=== PATIENT | female | born 1990 | race Caucasian/White ===

== ENCOUNTER → 2018-08-10 17:07 | Outpatient (CLI) | payer OTHER, BC, SELFPAY ==
[2018-08-10 17:33] LABS: Add Manual Diff / Slide Review NO; Appearance Urine UA CLEAR; Basophils Percent Auto 0.8 % (0-2); Bilirubin Urine UA NEGATIVE (NEGATIVE); Color Urine UA YELLOW; Eosinophils Percent Auto 1.1 % (2-4); Glucose Urine UA NEGATIVE (Negative); Hematocrit 35.2 % (36-46); Ketones Urine UA NEGATIVE (NEGATIVE); Leukocyte Esterase Urine UA 2+ (NEGATIVE); Lymphocytes Percent Auto 34.2 % (25-40); Mean Corpuscular HGB Conc 34.2 % (30-36); Mean Corpuscular Hemoglobin 30.7 PG (26-34); Mean Corpuscular Volume 89.7 fL (80-100); Monocytes Percent Auto 5.8 % (3-14); Neutrophils Absolute Auto 6000 /uL (1500-7000); Neutrophils Percent Auto 58.1 % (50-75); Nitrite Urine UA NEGATIVE (Negative); Occult Blood Urine UA NEGATIVE (Negative); Platelet Count 305 X10^3/uL (150-400); Protein Urine UA NEGATIVE (Negative); Red Blood Cell Count 3.92 X10^6/uL (4.0-5.2); Red Cell Distribution Width 12.9 % (11.6-14.8); Urobilinogen Urine UA 0.2 E.U./dL (0.2); White Blood Cell Count 10.4 X10^3/uL (4.5-11.0); pH Urine UA 5.5 (4.5-8.0)
[2018-08-10 17:36] LABS: Bacteria Urine None Seen; RBC Urine None Seen (0-5/HPF)
[2018-08-10 17:38] LABS: WBC Urine 1-5/HPF (0-5/HPF)
[2018-08-11 16:25] LABS: Hepatitis B Surface Antigen NEGATIVE s/c (NEGATIVE)
[2018-08-11 16:46] LABS: HIV 1 and 2 Antibody NEGATIVE (NEGATIVE); Hep C Virus Ab w/Reflex Quant NEGATIVE s/c (NEGATIVE)
[2018-08-12 14:06] LABS: Varicella IgG Antibody < 135.00 Index (< 135.00)
[2018-08-12 16:44] LABS: RPR Screen Nonreactive (Nonreactive)
== END ==
PROVIDERS: Visit Provider Specialist
DX: Z34.91 Encounter for supervision of normal pregnancy, unspecified, first trimester (principal)
CPT/HCPCS: 36415; 80055; 81003; 81015; 86703; 86787; 86803; 86850; 86900; 86901; 87086

== ENCOUNTER → 2018-10-12 16:06 | Outpatient (CLI) | payer OTHER, BC, SELFPAY ==
[2018-10-20 13:53] LABS: AFP, Serum 66.3 ng/mL; Cigarette Smoker N; Donated Egg N; Donor Egg Age NOT GIVEN; Estriol, Free 1.51 ng/mL; Inhibin A, Dimeric 237 pg/mL; Maternal Weight 145 lbs; Number of Fetuses NOT GIVEN; Previous Pregnancy Down Syndro N; hCG, MoM 2.03; hCG, Serum 58.7 IU/mL
== END ==
PROVIDERS: Visit Provider Specialist
DX: Z34.02 Encounter for supervision of normal first pregnancy, second trimester (principal); Z3A.17 17 weeks gestation of pregnancy
CPT/HCPCS: 36415; 82105; 82677; 84702; 86336

== ENCOUNTER → 2018-11-08 15:05 | Outpatient (CLI) | payer OTHER, BC, SELFPAY ==
--- NOTE | 2018-11-08 15:06 | DI.US.S_ITS ---
PROCEDURE: US OB >= 14 WEEKS FETUS INDICATIONS: 20 wk anatomy scan OUTSIDE/PRIOR DATING DATA: Last menstrual period (LMP): Not available. LMP-based estimated date of delivery (MICHELLE): Not available. First dating scan (date and location): No image data available.. Estimated date of delivery (MICHELLE) from first dating scan: No image data available.. TECHNIQUE: Real-time scanning was performed of the fetus, with image documentation and biometric measurements. Endovaginal scanning: Not necessary for this study. COMPARISON: None available. FINDINGS: General: A single living intrauterine gestation is present. Presentation: Breech Placenta: Placental position is anterior, without previa. Amniotic fluid index: 8.3 cm, normal range is 5-24 cm. heart rate: 152 beats per minute. Maternal cervical canal: 3.8 cm long. Normal lower limit is 2.5 cm. biometrics: Biparietal diameter: 4.5 cm, 19 weeks 5 days Head circumference: 17.5 cm, 20 weeks 0 days Abdominal circumference: 16.7 cm, 21 weeks 5 days Femur length: 3.3 cm, 20 weeks 3 days Estimated gestational age from initial scan: not applicable. Composite gestational age from present scan: 20 weeks 3 days Estimated weight and percentile: 389 g, 35th percentile Measurement variability for biometric dating: +/- 7 days from 14 weeks to 15 weeks 6 days gestation, +/- 10 days from 16 weeks to 21 weeks 6 days gestation, +/- 2 weeks from 22 weeks to 27 weeks 6 days gestation, +/- 3 weeks for 28 weeks gestation or later. weight reference: 4500 g or EFW >90/95% is considered macrosomia or large for gestational age. EFW <10% is small for gestational age. EFW 5% or less is considered intra-uterine growth restriction. Anatomic survey: Neuro: Ventricles are non-dilated at less than 10 mm. Cisterna magna is normal at 3-11 mm. Cerebellum is normal in size and morphology. Nuchal skin fold: Normal at less than 6 mm between 14-21 weeks gestational age. Face: Nose and lips, facial profile are normal. Spine: Poorly seen due to positioning. Heart: Poorly seen due to positioning. Diaphragm: Diaphragm is intact. Stomach: Left-sided stomach is present. Kidneys: No hydronephrosis. Normal is less than 5 mm in 2nd trimester, less than 7 mm in 3rd trimester. Cord: 3-vessel cord has insertion 1.7 cm from the placental margin. Bladder: Normal in size. Extremities: The lower extremities were poorly seen due to positioning IMPRESSION: Reportedly a prior OB ultrasound was performed but no image data is available for review. This evaluation is based on the current study only. A current estimated gestational age is 20 weeks 3 days and delivery date is projected beside on 03/25/19. Breech presentation at this time, positioning and breech presentation results in relatively poor anatomic survey with poor visualization of the spine, 4 chamber view of heart and ventricular outflow tracts, and the lower extremities bilaterally. Additionally, it was noted that there is a placental cord insertion within 1.7 cm from the placental margin. Additional followup completion of the anatomic survey it likely is warranted in this circumstance, and could be scheduled in 7-10 days. Dictated by: Tien Gallardo M.D. on 11/08/2018 at 16:33 Approved by: Tien Gallardo M.D. on 11/08/2018 at 16:39
== END ==
PROVIDERS: Visit Provider Specialist
DX: Z34.02 Encounter for supervision of normal first pregnancy, second trimester (principal); Z3A.20 20 weeks gestation of pregnancy
CPT/HCPCS: 76811

== ENCOUNTER → 2018-11-24 07:49 | Outpatient (CLI) | payer OTHER, BC, SELFPAY ==
--- NOTE | 2018-11-24 07:50 | DI.US.S_ITS ---
PROCEDURE: US OB FOLLOW UP INDICATIONS: F/U anatomy scan OUTSIDE/PRIOR DATING DATA: First dating scan (date and location): 08/12/18. Estimated date of delivery (MICHELLE) from first dating scan: 03/20/19. TECHNIQUE: Real-time scanning was performed of the fetus, with image documentation. Endovaginal scanning: Not performed COMPARISON: None. FINDINGS: A single living intrauterine gestation is present. Presentation: Vertex Placenta: Placental position is anterior, without previa. Low-lying placenta is again demonstrated with the edge of the placenta to the internal cervical os measuring approximately 1.7 cm. Amniotic fluid index: 9.9 cm, normal range is 5-24 cm. the largest vertical pocket measures approximately 2.7 cm. heart rate: 139 beats per minute. Maternal cervical canal: 3.3 cm long. Normal lower limit is 2.5 cm. Estimated gestational age from initial scan: 23 weeks and 3 days. Reevaluation of the anatomic structures demonstrate normal appearance of the lower extremities and feet, 4 chamber heart, spine, and facial profile. No abnormalities identified. IMPRESSION: Single living intrauterine gestation with estimated gestational age of approximately 23 weeks and 3 days. Reevaluation of the lower extremities, 4 chamber heart, spine, and facial profile are normal. Persistent low-lying placenta with the distance between the placental edge to the internal cervical os measuring 1.7 cm. Consider followup imaging at 32 weeks gestational age. Dictated by: Angel Kaiser M.D. on 11/24/2018 at 16:51 Approved by: Angel Kaiser M.D. on 11/24/2018 at 17:18
== END ==
PROVIDERS: Visit Provider Specialist
DX: Z34.92 Encounter for supervision of normal pregnancy, unspecified, second trimester (principal); Z3A.23 23 weeks gestation of pregnancy
CPT/HCPCS: 76816

== ENCOUNTER → 2018-12-16 07:24 | Outpatient (CLI) | payer OTHER, BC, SELFPAY ==
[2018-12-16 08:58] LABS: Hematocrit 33.6 % (36-46); Hemoglobin 11.7 g/dL (12.0-16.0)
[2018-12-16 09:39] LABS: GTT (PREG) 1 Hour PP 50gm Dose 66 mg/dL (76-139)
== END ==
PROVIDERS: Visit Provider Specialist
DX: O26.899 Other specified pregnancy related conditions, unspecified trimester (principal); Z67.91 Unspecified blood type, Rh negative; Z3A.25 25 weeks gestation of pregnancy
CPT/HCPCS: 36415; 82950; 85014; 85018; 86850

== ENCOUNTER 2019-01-03 16:28 | Emergency (ER) | payer OTHER, BC, SELFPAY ==
[2019-01-03 16:37] VITALS: BP 111/68; PULSE 76; RESP 20; TEMP 36.2; O2SAT 99
--- NOTE | 2019-01-03 16:47 | DI.US.S_ITS ---
PROCEDURE: US PERIPH VENOUS LOW EXTREM RT INDICATIONS: RT LEG TIGHTNESS AFTER TRAVELING TECHNIQUE: Real-time imaging, as well as color and pulse Doppler interrogation, were performed of the lower extremity deep veins from the inguinal ligament to the popliteal fossa. COMPARISON: None. FINDINGS: The common femoral, femoral and popliteal veins are normally compressible, and free of intraluminal thrombus. Color and pulse Doppler demonstrate normal phasic intraluminal flow. There is normal augmentation response to distal compression maneuver. At the area of clinical concern, no thromboses can be seen within the superficial varicose veins. IMPRESSION: Negative for deep venous thrombosis. Dictated by: Aguilar Shah M.D. on 01/03/2019 at 16:45 Approved by: Aguilar Shah M.D. on 01/03/2019 at 16:45
[2019-01-03 18:45] VITALS: BP 110/58; PULSE 75; RESP 18; O2SAT 98
[2019-01-03 19:35] VITALS: BP 114/69; PULSE 78; RESP 16; O2SAT 98
--- NOTE | 2019-01-03 19:49 | ED.EXTPRO ---
HPI - Extremity Problem <KENDRA Granado - Last Filed: 01/03/19 19:56> General Chief complaint: Extremity Problem,Nontraumatic Stated complaint: R/O BLOOD CLOT Time Seen by Provider: 01/03/19 18:18 Source: patient Mode of arrival: ambulatory Limitations: no limitations History of Present Illness HPI Narrative: The patient is a 29 week nonsmoker female with history of Leiden deficiency who presents for chief complaint of possible blood clot right leg. She is on Lovenox while . She noticed some swelling and pain in her right leg. She did have a 3 hour flight from [place] recently. She denies any chest pain or shortness of breath. She states movement is good. She denies any other issues such as abdominal pain bleeding or discharge. Related Data Previous Rx's Medication Instructions Recorded vitamins no.106-iron 27.5 1 cap PO DAILY #90 cap 05/02/18 mg-folate no.6 1 mg-dha capsule enoxaparin 40 mg/0.4 mL 40 mg SUBCUT DAILY #12 ml 08/03/18 subcutaneous syringe Allergies Allergy/AdvReac Type Severity Reaction Status Date / Time Sulfa (Sulfonamide Allergy Mild Rash Unverified 08/10/18 17:10 Antibiotics) [SULFA (SULFONAMIDE ANTIBIOTICS)] Review of Systems <KENDRA Granado - Last Filed: 01/03/19 19:56> Review of Systems GENERAL: Denies chills, fatigue, malaise, fever, sweats. HEENT: Denies sinus pain, ear pain, sore throat, difficulty swallowing, dizziness. RESPIRATORY: Denies dyspnea, cough, wheezing, hemoptysis, sputum. CARDIOVASCULAR: Denies chest pain, palpitations, orthopnea, edema, GASTROINTESTINAL: Denies nausea, vomiting, abdominal pain, diarrhea, constipation, melena. : Denies dysuria, frequency, incontinence, hematuria, urinary retention. MUSCULOSKELETAL: See HPI SKIN: Denies rash, skin lesions, or other NEUROLOGIC: Denies weakness, headache, numbness, change in speech, confusion, seizures, incoordination. PSYCHIATRIC: No concerning psychosocial issues. 12 point review of systems is negative except for those stated above PFSH <KENDRA Granado - Last Filed: 01/03/19 19:56> Medical History Homozygous Factor V Leiden mutation (Chronic) Social History Smoking Status: Never smoker Social History Smoking Status: Never smoker Exam <KENDRA Granado - Last Filed: 01/03/19 19:56> Narrative Exam Narrative: GENERAL: This is a well-nourished, well-developed patient, in no acute distress reading a book HEAD: Atraumatic. Normocephalic. No temporal or scalp tenderness. EYES: Pupils equal round and reactive. Extraocular motions intact. No scleral icterus. No injection or drainage. NECK: Trachea midline. No JVD or lymphadenopathy. Supple, nontender, no meningeal signs. CARDIOVASCULAR: Regular rate and rhythm without murmurs, gallops, or rubs. RESPIRATORY: Clear to auscultation. Breath sounds equal bilaterally. No wheezes, rales, or rhonchi. No cough. No increased respiratory effort. No accessory muscle use. GASTROINTESTINAL: Abdomen round, non-tender, nondistended. No hepato-splenomegaly, or palpable masses. No guarding. EXTREMITIES: No clubbing, cyanosis, or edema. No joint tenderness, effusion, or edema noted. Positive pedal pulses right foot. Slight varicose vein noted lateral aspect right lower leg. BACK: Nontender without deformity or crepitance. No flank tenderness. NEURO: AOx3. SKIN: No rash or erythema. Initial Vital Signs Initial Vital Signs: Vital Signs Temperature 97.2 F L 01/03/19 16:37 Pulse Rate 76 01/03/19 16:37 Respiratory Rate 20 01/03/19 16:37 Blood Pressure 111/68 01/03/19 16:37 Pulse Oximetry 99 01/03/19 16:37 <Will Bartlett DO - Last Filed: 01/04/19 01:50> Initial Vital Signs Initial Vital Signs: Vital Signs Temperature 97.2 F L 01/03/19 16:37 Pulse Rate 76 01/03/19 16:37 Respiratory Rate 20 01/03/19 16:37 Blood Pressure 111/68 01/03/19 16:37 Pulse Oximetry 99 01/03/19 16:37 Course <KENDRA Granado - Last Filed: 01/03/19 19:56> Orders Ordered: ED Orders 01/03/19 16:47 US periph venous low extrem rt Stat Vital Signs - 8 hr 01/03/19 18:45 01/03/19 19:35 Pulse Rate 75 78 Respiratory Rate 18 16 Blood Pressure [Left Arm] 110/58 L 114/69 Pulse Oximetry 98 98 <Will Bartlett DO - Last Filed: 01/04/19 01:50> Orders Ordered: ED Orders 01/03/19 16:47 US periph venous low extrem rt Stat Vital Signs - 8 hr 01/03/19 18:45 01/03/19 19:35 Pulse Rate 75 78 Respiratory Rate 18 16 Blood Pressure [Left Arm] 110/58 L 114/69 Pulse Oximetry 98 98 MDM - Extremity (Nontraumatic) <KENDRA Granado - Last Filed: 01/03/19 19:56> Imaging Data Venous US: Radiologist's impression: [place] [address] Ultrasound Report Signed Patient: Lucero Eduardo R#: [id number] : 1990Acct:[id number] Age/Sex: 28 / FDate of Service: 01/03/19 Loc: ED Accession Number: [id number] Procedure: US periph venous low extrem rt Ordering Provider: Meliza Zhang PROCEDURE: US PERIPH VENOUS LOW EXTREM RT INDICATIONS: RT LEG TIGHTNESS AFTER TRAVELING TECHNIQUE: Real-time imaging, as well as color and pulse Doppler interrogation, were performed of the lower extremity deep veins from the inguinal ligament to the popliteal fossa. COMPARISON: None. FINDINGS: The common femoral, femoral and popliteal veins are normally compressible, and free of intraluminal thrombus. Color and pulse Doppler demonstrate normal phasic intraluminal flow. There is normal augmentation response to distal compression maneuver. At the area of clinical concern, no thromboses can be seen within the superficial varicose veins. IMPRESSION: Negative for deep venous thrombosis. Dictated by: Aguilar Shah M.D. on 01/03/2019 at 16:45 Approved by: Aguilar Shah M.D. on 01/03/2019 at 16:45 [facility] Narrative Medical decision making narrative: The patient is a 28-year-old female who presents with chief complaint of a possible DVT in her right lower leg. She has a negative ultrasound. I discussed at length concern measures. She had good heart tones which were taken in the 150s. I discussed coming back to emergency department for any acute concerns such as concern of another blood clot and or shortness of breath etc. Encouraged follow-up with PCP as well as OBGYN. No questions or concerns on discharge. Discharge Plan Departure Patient Disposition: Home Clinical Impression: Acute leg pain Qualifiers: Laterality: right Qualified Code(s): M79.604 - Pain in right leg Discharge Date/Time: 01/03/19 19:56 Interventions: ED Discharge Assessment Last Done: 01/03/19 19:55 Instructions: DI for Leg Pain Activity Restrictions/Additional Instructions: Your ultrasound today came back with no clots. Please follow up with primary care provider and OBGYN. Please come back to the emergency department for any acute concerns such as concern for another blood clot, PE etc. Please continue conservative measures for pain control Prescriptions: No Action enoxaparin [Lovenox] 40 mg/0.4 mL syringe 40 mg SUBCUT DAILY Qty: 12 RF: 6 PNV no.004-[id number] no6-dha 27.5 mg iron- 1 mg capsule 1 cap PO DAILY Qty: 90 RF: 3 Referrals: Araceli Li MD [Primary Care Provider] - <Will Bartlett DO - Last Filed: 01/04/19 01:50> Cosign ED Attending Trixie Attestation: I was immediately available in the department for consultation. Documentation has been reviewed. I agree with assessment and plan.
--- NOTE | 2019-01-03 19:53 | ED_ITS ---
HPI - Extremity Problem <KENDRA Granado - Last Filed: 01/03/19 19:56> General Chief complaint: Extremity Problem,Nontraumatic Stated complaint: R/O BLOOD CLOT Time Seen by Provider: 01/03/19 18:18 Source: patient Mode of arrival: ambulatory Limitations: no limitations History of Present Illness HPI Narrative: The patient is a 29 week nonsmoker female with history of Leiden deficiency who presents for chief complaint of possible blood clot right leg. She is on Lovenox while . She noticed some swelling and pain in her right leg. She did have a 3 hour flight from [place] recently. She denies any chest pain or shortness of breath. She states movement is good. She denies any other issues such as abdominal pain bleeding or discharge. Related Data Previous Rx's Medication Instructions Recorded vitamins no.106-iron 27.5 1 cap PO DAILY #90 cap 05/02/18 mg-folate no.6 1 mg-dha capsule enoxaparin 40 mg/0.4 mL 40 mg SUBCUT DAILY #12 ml 08/03/18 subcutaneous syringe Allergies Allergy/AdvReac Type Severity Reaction Status Date / Time Sulfa (Sulfonamide Allergy Mild Rash Unverified 08/10/18 17:10 Antibiotics) [SULFA (SULFONAMIDE ANTIBIOTICS)] Review of Systems <KENDRA Granado - Last Filed: 01/03/19 19:56> Review of Systems GENERAL: Denies chills, fatigue, malaise, fever, sweats. HEENT: Denies sinus pain, ear pain, sore throat, difficulty swallowing, dizziness. RESPIRATORY: Denies dyspnea, cough, wheezing, hemoptysis, sputum. CARDIOVASCULAR: Denies chest pain, palpitations, orthopnea, edema, GASTROINTESTINAL: Denies nausea, vomiting, abdominal pain, diarrhea, constipation, melena. : Denies dysuria, frequency, incontinence, hematuria, urinary retention. MUSCULOSKELETAL: See HPI SKIN: Denies rash, skin lesions, or other NEUROLOGIC: Denies weakness, headache, numbness, change in speech, confusion, seizures, incoordination. PSYCHIATRIC: No concerning psychosocial issues. 12 point review of systems is negative except for those stated above PFSH <KENDRA Granado - Last Filed: 01/03/19 19:56> Medical History Homozygous Factor V Leiden mutation (Chronic) Social History Smoking Status: Never smoker Social History Smoking Status: Never smoker Exam <KENDRA Granado - Last Filed: 01/03/19 19:56> Narrative Exam Narrative: GENERAL: This is a well-nourished, well-developed patient, in no acute distress reading a book HEAD: Atraumatic. Normocephalic. No temporal or scalp tenderness. EYES: Pupils equal round and reactive. Extraocular motions intact. No scleral icterus. No injection or drainage. NECK: Trachea midline. No JVD or lymphadenopathy. Supple, nontender, no meningeal signs. CARDIOVASCULAR: Regular rate and rhythm without murmurs, gallops, or rubs. RESPIRATORY: Clear to auscultation. Breath sounds equal bilaterally. No wheezes, rales, or rhonchi. No cough. No increased respiratory effort. No accessory muscle use. GASTROINTESTINAL: Abdomen round, non-tender, nondistended. No hepato- splenomegaly, or palpable masses. No guarding. EXTREMITIES: No clubbing, cyanosis, or edema. No joint tenderness, effusion, or edema noted. Positive pedal pulses right foot. Slight varicose vein noted lateral aspect right lower leg. BACK: Nontender without deformity or crepitance. No flank tenderness. NEURO: AOx3. SKIN: No rash or erythema. Initial Vital Signs Initial Vital Signs: Vital Signs Temperature 97.2 F L 01/03/19 16:37 Pulse Rate 76 01/03/19 16:37 Respiratory Rate 20 01/03/19 16:37 Blood Pressure 111/68 01/03/19 16:37 Pulse Oximetry 99 01/03/19 16:37 <Will Bartlett DO - Last Filed: 01/04/19 01:50> Initial Vital Signs Initial Vital Signs: Vital Signs Temperature 97.2 F L 01/03/19 16:37 Pulse Rate 76 01/03/19 16:37 Respiratory Rate 20 01/03/19 16:37 Blood Pressure 111/68 01/03/19 16:37 Pulse Oximetry 99 01/03/19 16:37 Course <KENDRA Granado - Last Filed: 01/03/19 19:56> Orders Ordered: ED Orders 01/03/19 16:47 US periph venous low extrem rt Stat Vital Signs - 8 hr 01/03/19 18:45 01/03/19 19:35 Pulse Rate 75 78 Respiratory Rate 18 16 Blood Pressure [Left Arm] 110/58 L 114/69 Pulse Oximetry 98 98 <Will Bartlett DO - Last Filed: 01/04/19 01:50> Orders Ordered: ED Orders 01/03/19 16:47 US periph venous low extrem rt Stat Vital Signs - 8 hr 01/03/19 18:45 01/03/19 19:35 Pulse Rate 75 78 Respiratory Rate 18 16 Blood Pressure [Left Arm] 110/58 L 114/69 Pulse Oximetry 98 98 MDM - Extremity (Nontraumatic) <KENDRA Granado - Last Filed: 01/03/19 19:56> Imaging Data Venous US: Radiologist's impression: [place] [address] Ultrasound Report Signed Patient: Lucero Eduardo R#: [id number] : 1990Acct:[id number] Age/Sex: 28 / FDate of Service: 01/03/19 Loc: ED Accession Number: [id number] Procedure: US periph venous low extrem rt Ordering Provider: Meliza Zhang PROCEDURE: US PERIPH VENOUS LOW EXTREM RT INDICATIONS: RT LEG TIGHTNESS AFTER TRAVELING TECHNIQUE: Real-time imaging, as well as color and pulse Doppler interrogation, were performed of the lower extremity deep veins from the inguinal ligament to the popliteal fossa. COMPARISON: None. FINDINGS: The common femoral, femoral and popliteal veins are normally compressible, and free of intraluminal thrombus. Color and pulse Doppler demonstrate normal phasic intraluminal flow. There is normal augmentation response to distal compression maneuver. At the area of clinical concern, no thromboses can be seen within the superficial varicose veins. IMPRESSION: Negative for deep venous thrombosis. Dictated by: Aguilar Shah M.D. on 01/03/2019 at 16:45 Approved by: Aguilar Shah M.D. on 01/03/2019 at 16:45 [facility] Narrative Medical decision making narrative: The patient is a 28-year-old female who presents with chief complaint of a possible DVT in her right lower leg. She has a negative ultrasound. I discussed at length concern measures. She had good heart tones which were taken in the 150s. I discussed coming back to emergency department for any acute concerns such as concern of another blood clot and or shortness of breath etc. Encouraged follow-up with PCP as well as OBGYN. No questions or concerns on discharge. Discharge Plan Departure Patient Disposition: Home Clinical Impression: Acute leg pain Qualifiers: Laterality: right Qualified Code(s): M79.604 - Pain in right leg Discharge Date/Time: 01/03/19 19:56 Interventions: ED Discharge Assessment Last Done: 01/03/19 19:55 Instructions: DI for Leg Pain Activity Restrictions/Additional Instructions: Your ultrasound today came back with no clots. Please follow up with primary care provider and OBGYN. Please come back to the emergency department for any acute concerns such as concern for another blood clot, PE etc. Please continue conservative measures for pain control Prescriptions: No Action enoxaparin [Lovenox] 40 mg/0.4 mL syringe 40 mg SUBCUT DAILY Qty: 12 RF: 6 PNV no.273-lews-pxhjlm no6-dha 27.5 mg iron- 1 mg capsule 1 cap PO DAILY Qty: 90 RF: 3 Referrals: Araceli Li MD [Primary Care Provider] - <Will Bartlett DO - Last Filed: 01/04/19 01:50> Cosign ED Attending Trixie Attestation: I was immediately available in the department for consultation. Documentation has been reviewed. I agree with assessment and plan.
== END 2019-01-03 19:56 | disposition home or self-care (01) ==
PROVIDERS: Emergency Provider Nurse Practitioner Family; Family Provider Specialist; PCP Specialist
DX: M79.604 Pain in right leg (principal)
CPT/HCPCS: 93971; 99283

== ENCOUNTER → 2019-02-24 11:57 | Outpatient (CLI) | payer OTHER, BC, SELFPAY ==
[2019-02-25 10:38] LABS: Strep Grp B PCR NEG for Grp B Strep
== END ==
PROVIDERS: Family Provider Specialist; PCP Specialist; Visit Provider Specialist
DX: Z36.85 Encounter for antenatal screening for Streptococcus B (principal); Z3A.36 36 weeks gestation of pregnancy
CPT/HCPCS: 87653

== ENCOUNTER → 2019-03-03 12:10 | Outpatient (CLI) | payer OTHER, BC, SELFPAY ==
[2019-03-03 13:00] LABS: INR 0.9 (0.9-1.3); Prothrombin Time 10.8 SECONDS (10.1-12.7)
[2019-03-03 13:12] LABS: Platelet Count 289 X10^3/uL (150-400)
== END ==
PROVIDERS: Family Provider Specialist; PCP Specialist; Visit Provider Specialist
DX: Z51.81 Encounter for therapeutic drug level monitoring (principal); Z79.01 Long term (current) use of anticoagulants; D68.51 Activated protein C resistance
CPT/HCPCS: 36415; 85049; 85610

== ENCOUNTER → 2019-03-10 10:44 | Outpatient (CLI) | payer OTHER, BC, SELFPAY ==
[2019-03-10 11:56] LABS: Platelet Count 277 X10^3/uL (150-400)
== END ==
PROVIDERS: PCP Physician Assistant Medical; Visit Provider Specialist
DX: D68.51 Activated protein C resistance (principal)
CPT/HCPCS: 36415; 85049

== ENCOUNTER 2019-03-14 19:15 | Inpatient (IN) | payer OTHER, SELFPAY ==
[2019-03-14] MEDS: miSOPROStol 25 MCG TABLET VAG (20:32)
[2019-03-14 21:15] LABS: Add Manual Diff / Slide Review NO; Basophils Absolute Auto 100 /uL (0-100); Basophils Percent Auto 0.4 % (0-2); Eosinophils Absolute Auto 200 /uL (0-450); Eosinophils Percent Auto 1.2 % (2-4); Hematocrit 36.3 % (36-46); Hemoglobin 12.6 g/dL (12.0-16.0); Lymphocytes Absolute Auto 2600 /uL (1100-4500); Lymphocytes Percent Auto 16.6 % (25-40); Mean Corpuscular HGB Conc 34.7 % (30-36); Mean Corpuscular Hemoglobin 31.7 PG (26-34); Mean Corpuscular Volume 91.5 fL (80-100); Monocytes Absolute Auto 1100 /uL (0-900); Monocytes Percent Auto 6.8 % (3-14); Neutrophils Absolute Auto 11700 /uL (1500-7000); Platelet Count 264 X10^3/uL (150-400); Red Blood Cell Count 3.97 X10^6/uL (4.0-5.2); Red Cell Distribution Width 12.6 % (11.6-14.8); White Blood Cell Count 15.6 X10^3/uL (4.5-11.0)
[2019-03-14 21:29] VITALS: BP 126/73
[2019-03-15] MEDS: miSOPROStol 25 MCG TABLET VAG (00:29)
[2019-03-15] MEDS: LACTATED RINGERS 1,000 ML 100 ML IV ×4 (07:37→16:34)
[2019-03-15] MEDS: OXYTOCIN PREMIX 30 UNIT/500 ML PLAST..BAG IV (07:43)
--- NOTE | 2019-03-15 10:32 | P.HPOB_ITS ---
OB HPI Date/Time Date of admission: 03/14/19 Date Patient Seen: 03/15/19 Time Patient Seen: 07:30 History of Present Condition Chief complaint: OBSERVATION OF LABOR : 1 Para: 0 Estimated Date of Delivery: 03/22/19 Estimated Gestational Age (weeks): 39 Narrative: Lucero Eduardo is a 28 year old female admitted for induction for patient on heparin for homozygous factor 5 Leiden deficiency. Indications Indication for induction OB: medical complication (Homozygous factor 5 Leiden) History of Present care: good care, initiated at week # (8), number of visits (12) and pounds weight gain (47) Dating criteria: LMP confirmed by 1st trimester US Ultrasounds: normal mid trimester US Obstetrical complications: none Narrative: Homozygous for factor 5 Leiden deficiency. Patient was on Lovenox throughout the . She was switched to heparin at 37 weeks. Her last dose of heparin was 03/14/2019 8:00 a.m.. Preadmission Labs Blood type: A (-) negative -: Antibody screen: negative, GBS status: negative, HBsAG: negative, HIV: negative and RPR/VDLR: negative -: Chlamydia screen: not detected and Gonorrhea screen: not detected -: Rubella: immune and Varicella: not immune HCAB: negative Quad screen: Normal 1 hr GTT: 66 Evaluation Evaluation Baseline heart rate: 130 Variability: Moderate (11-25) monitor accelerations: Present monitor decelerations: Absent Contraction Frequency (minutes): 3 Uterine Contraction Intensity: Mild Category of Tracing: I Cervical dilation (cm): 2 Cervical effacement (%): 80 station: -1 Laboratory results: Laboratory Tests 03/14/19 03/14/19 21:00 21:00 WBC 15.6 H RBC 3.97 L Hgb 12.6 Hct 36.3 MCV 91.5 MCH 31.7 MCHC 34.7 RDW 12.6 Plt Count 264 Neut % (Auto) 75.0 Lymph % (Auto) 16.6 L [place] % (Auto) 6.8 Eos % (Auto) 1.2 L Baso % (Auto) 0.4 Neut # (Auto) 90041 H Lymph # (Auto) 2600 [place] # (Auto) 1100 H Eos # (Auto) 200 Baso # (Auto) 100 Blood Type A Negative Antibody Screen Positive Antibody Identification Anti-D PFSH Social History Smoking Status: Never smoker Social History Smoking Status: Never smoker Meds Home Medications Medication Instructions Recorded Confirmed Type vitamins no.106-iron 27.5 1 cap PO DAILY #90 cap 05/02/18 03/14/19 Rx mg-folate no.6 1 mg-dha capsule heparin (porcine) 10,000 unit/mL 10,000 unit SUBCUT Q12H 30 Days 02/22/19 03/14/19 Rx injection solution #60 ml syringe with needle 3 mL 25 x 5/8 #1 each 02/22/19 Rx Double Electric breast Pump and #1 each 02/23/19 Rx Supplies Allergies Allergy/AdvReac Type Severity Reaction Status Date / Time Sulfa (Sulfonamide Allergy Mild Rash Verified 03/14/19 20:19 Antibiotics) [SULFA (SULFONAMIDE ANTIBIOTICS)] Review of Systems Review of Systems Patient without signs or symptoms of preeclampsia. Good movement. No rupture membranes. All systems reviewed & are unremarkable except as noted in HPI and below Exam Vital Signs (past 8 hours): Blood pressure 140/79, pulse of 90, temperature 36.3? Narrative Exam Narrative: HEENT exam within normal limits. Lungs are clear to auscultation and percussion. Heart is regular rate and rhythm no S3-S4 or murmurs. Abdomen is gravid. Trace edema with normal DTRs and nontender. Objective Labs Result Diagrams: 03/14/19 21:00 Labs: Laboratory Results - last 24 hr 03/14/19 03/14/19 21:00 21:00 WBC 15.6 H RBC 3.97 L Hgb 12.6 Hct 36.3 MCV 91.5 MCH 31.7 MCHC 34.7 RDW 12.6 Plt Count 264 Neut % (Auto) 75.0 Lymph % (Auto) 16.6 L [place] % (Auto) 6.8 Eos % (Auto) 1.2 L Baso % (Auto) 0.4 Neut # (Auto) 28173 H Lymph # (Auto) 2600 [place] # (Auto) 1100 H Eos # (Auto) 200 Baso # (Auto) 100 Blood Type A Negative Antibody Screen Positive Antibody Identification Anti-D Assessment and Plan Assessment and Plan Assessment and Plan narrative: 39 week gestation with homozygous factor 5 Leiden deficiency admitted for induction so that she could be off heparin for her delivery. Anticipate vaginal delivery. She will [facility] to [facility] . Patient with a history of depression and anxiety will be monitored closely for need for medication. Patient is varicella nonimmune should receive vaccination prior to discharge.
[2019-03-15] MEDS: FENT 2MCG/ML BUPIV 0.125% EPI 200 MCG/100 ML PLAST..BAG 10 MCG EPIDURAL (15:04)
[2019-03-15 20:55] VITALS: TEMP 38.4
[2019-03-15] MEDS: ACETAMINOPHEN 325 MG TABLET 650 MG PO (20:55)
[2019-03-15] MEDS: METHYLERGONOVINE 0.2 MG/ML VIAL IM (21:55)
--- NOTE | 2019-03-15 22:07 | PM.OBPRVD ---
Delivery date: 03/15/19 Intrapartal events: Febrile (last 1 hour temp 101) Cervical ripening method: per misoprostal protocol Induction method: per pitocin protocol Delivery augmentation: rupture of membranes Delivery monitor: external FHT and external uterine Route of delivery: vacuum extraction Indication for instrumentation: nonreassuring FHR tracing (Rising heart rate with temperature and maternal exhaustion) L&D Laceration Description: Vaginal - 1st Degree Delivery repair: chromic (3-0) Estimated blood loss (mL): 400 Anesthesia type: Epidural Narrative: Patient was admitted for induction for need for anticoagulation for double mutation factor 5 Leiden deficiency. She received Cytotec followed by Pitocin induction. She was AROM for what initially was clear fluid but then became meconium-stained. She became complete and was pushing. Maternal temperature went up to 1O1. She was given IV fluids and Tylenol. She was not making significant progress after 2 hours so decision was made to assist with vacuum. The vacuum was placed for a total of 2 pushes with delivery of the head. The was then delivered and placed on maternal abdomen. After the cord stopped pulsating the cord was clamped, cut, and cord bloods obtained. The placenta took a fair amount of time to deliver but then delivered spontaneously. The placenta appeared to be intact with 3 vessel cord. There were no cervical or perineal tears. A first-degree vaginal tear was repaired with 3 0 chromic suture. The bleeding required IV Pitocin followed by IM Methergine. Estimated blood loss 400 cc. Both and mother doing well. Baby 1: Infant gender: Female Presentation: vertex position: Right Occiput Posterior Placenta delivery description: Spontaneous cord vessel description: 3 Vessels score (1 min): 9 score (5 min): 9 Plan for aftercare: Routine care. Will restart Lovenox 12 hours after delivery.
[2019-03-16 06:27] LABS: Add Manual Diff / Slide Review NO; Basophils Absolute Auto 0 /uL (0-100); Basophils Percent Auto 0.1 % (0-2); Eosinophils Absolute Auto 100 /uL (0-450); Eosinophils Percent Auto 0.6 % (2-4); Hemoglobin 11.9 g/dL (12.0-16.0); Lymphocytes Absolute Auto 2400 /uL (1100-4500); Lymphocytes Percent Auto 12.5 % (25-40); Mean Corpuscular Hemoglobin 32.5 PG (26-34); Mean Corpuscular Volume 90.4 fL (80-100); Monocytes Absolute Auto 1500 /uL (0-900); Monocytes Percent Auto 7.5 % (3-14); Neutrophils Absolute Auto 15400 /uL (1500-7000); Neutrophils Percent Auto 79.3 % (50-75); Platelet Count 224 X10^3/uL (150-400); Red Blood Cell Count 3.65 X10^6/uL (4.0-5.2); Red Cell Distribution Width 12.6 % (11.6-14.8); White Blood Cell Count 19.5 X10^3/uL (4.5-11.0)
[2019-03-16] MEDS: ENOXAPARIN 40 MG/0.4 ML SYRINGE SUBCUT (09:06)
[2019-03-16] MEDS: BISACODYL 5 MG TABLET PO (09:18)
[2019-03-16] MEDS: ACETAMINOPHEN 325 MG TABLET 650 MG PO (13:20)
--- NOTE | 2019-03-16 13:44 | P.DS_ITS ---
Discharge Providers Date of admission: 03/14/19 19:15 Discharge Date: 03/16/19 Primary care physician: Jenni Greco PA-C Consults: 03/14/19 20:17 Consult to Anesthesiology Urgent Comment: Consulting Provider: Anesthesiologist Reason for consultation: epidural Has provider been notified: No 03/15/19 22:11 Consult to Fire And Safety Helper Routine Comment: Discharge provider: Araceli Li MD Summary Date Patient Seen: 03/16/19 Time Patient Seen: 13:42 Procedures: Prostin followed by Pitocin induction. Epidural catheter. Vacuum assisted vaginal delivery. Hospital Course: Patient arrived on Labor and delivery for induction so that she could be off for heparin for prevention of bleeding. She received Cytotec followed by Pitocin. She was AROMed initially clear fluid than meconium-stained. She received an epidural catheter. After 2 hours of pushing she became febrile and was not making significant progress so vacuum was used to assist in delivery. She had a first-degree vaginal laceration that was repaired. Both and mother doing well. Patient is urinating and ambulating well. Mild pain. Breast-feeding is going well. No signs or symptoms of preeclampsia. Blood pressure 114/65, pulse of 91, temperature 98.4?. Uterus is firm at U -1, nontender. Mild lochia. Extremities with trace edema and nontender. Patient did not need RhoGAM cut as the baby is Rh negative. She is rubella immune and received the Tdap in the 3rd trimester. Peripartum Data Delivery Method: Assisted Delivery (Vacuum) Laceration description: Vaginal - 1st Degree Procedures: Prostin followed by Pitocin induction, epidural catheter, vacuum assisted vaginal delivery complications: none 1: Gender: Female Disposition of : home Status at Discharge Cognitive/behavioral status at discharge: oriented Functional status at discharge: independent ambulation Overall status at discharge: patient is progressing back to baseline Time Spent with Patient Total time spent providing and/or coordinating discharge services: Less than 30 minutes Objective Labs Result Diagrams: 03/16/19 06:22 Labs: Laboratory Results - last 24 hr 03/14/19 03/16/19 21:00 06:22 WBC 19.5 H RBC 3.65 L Hgb 11.9 L Hct 33.0 L MCV 90.4 MCH 32.5 MCHC 36.0 RDW 12.6 Plt Count 224 Neut % (Auto) 79.3 H Lymph % (Auto) 12.5 L [place] % (Auto) 7.5 Eos % (Auto) 0.6 L Baso % (Auto) 0.1 Neut # (Auto) 69989 H Lymph # (Auto) 2400 [place] # (Auto) 1500 H Eos # (Auto) 100 Baso # (Auto) 0 Antibody Identification Anti-D Discharge Plan Discharge Plan Patient Disposition: Home Discharge Med Rec/Prescriptions Prescriptions: New enoxaparin 40 mg/0.4 mL syringe 40 mg SUBCUT DAILY Qty: 40 RF: 0 Continued PNV no.623-fenv-coexnf no6-dha 27.5 mg iron- 1 mg capsule 1 cap PO DAILY Qty: 90 RF: 3 Discontinued heparin (porcine) 10,000 unit/mL solution 10,000 unit SUBCUT Q12H 30 Days Qty: 60 RF: 0 No Action BD Eclipse [place] 3 mL 25 x 5/8 syringe .ROUTE .MEDSUPPLY Qty: 1 RF: 0 Double Electric breast Pump and Supplies .ROUTE .MEDSUPPLY Qty: 1 RF: 0 Follow up/Referrals: Araceli Li MD [Physician] - 05/01/19 9:00 am (Please arrive 15 minutes before your scheduled appointment time. at 9:00 am. appointment with on at 11:00 am. ) Provider Discharge Instructions Diet: Diet as Tolerated Activity: Nothing in vagina for 4 weeks Skin/Wound/Dressing Care Report to your healthcare provider any signs of infection, such as:: chills, fever and increased pain Visit Report/Discharge Packet Instructions: DI for Labor and Delivery, Vaginal Visit Report Forms: Stroke Signs & Symptoms Discharge Data Primary Care Provider: Jenni Greco Attending Provider: Araceli Li Admit Date/Time: 03/14/19 19:15
[2019-03-16 14:45] VITALS: BP 114/65; PULSE 91; RESP 16; TEMP 36.9
[2019-03-16] MEDS: LANOLIN OINT 7 GM 1 APPLIC TOP (14:49)
== END 2019-03-16 17:20 | disposition home or self-care (01) | DRG 806 ==
PROVIDERS: Admitting Provider Specialist; PCP Physician Assistant Medical; Visit Provider Specialist
DX: O99.12 Other diseases of the blood and blood-forming organs and certain disorders involving the immune mechanism complicating childbirth (principal); D68.51 Activated protein C resistance; Z37.0 Single live birth; O75.2 Pyrexia during labor, not elsewhere classified; Z3A.39 39 weeks gestation of pregnancy; O70.0 First degree perineal laceration during delivery; O77.0 Labor and delivery complicated by meconium in amniotic fluid
CPT/HCPCS: 01967; 36415; 59050; 59410; 85025; 86850; 86870; 86900; 86901; G0379; J1650; J2210; J2590

== ENCOUNTER → 2023-01-14 12:53 | Outpatient (CLI) | payer OTHER, SELFPAY ==
--- NOTE | 2023-01-14 | DI.MRI.S_ITS ---
BREAST MRI OF BOTH BREASTS: 01/14/2023 CLINICAL: Abnormal breast imaging. PROCEDURE: MR BREAST BI WO/W CON INDICATIONS: ABNORMAL BREAST IMAGING TECHNIQUE: The patient was placed prone in a dedicated breast imaging coil. Precontrast axial STIR and 3D FLASH without fat saturation sequences were obtained. Both before and after bolus injection of contrast, sequential 1-minute axial 3D FLASH with fat saturation sequences for 3 time points, with subtraction images and maximum intensity projections (MIP's) generated. Delayed sagittal FLASH images with fat saturation were also obtained. Contrast: 20 cc ProHance IV contrast. Computer-aided detection, including computer algorithm analysis of MRI image data for lesion detection and characterization, pharmacokinetic analysis, with further physician review for interpretation, was performed. COMPARISON: [facility][1], , US LEFT BREAST, 12/21/2022, 9:43. [facility][1], MG, MM DIAGNOSTIC MAMMO BI, 12/21/2022, 8:48. FINDINGS: Image quality: Excellent. There is mild background parenchymal enhancement. Right breast: No mass or suspicious enhancement. Left breast: No mass or suspicious enhancement. Particular attention to the 3:00 and 4:00 anterior depth in the region of possible architectural distortion seen on mammogram. Miscellaneous: No enlarged lymph nodes. IMPRESSION: NEGATIVE No mass or suspicious enhancement. No architectural distortion seen in the left breast. The mammographic finding is consisted with benign fibroglandular tissue. No enlarged lymph nodes. BIRADS 1 Return to annual mammogram screening schedule is recommended usually to commence at age 40. COMMENT: The imaging literature indicates that a negative contrast breast MRI examination has a high sensitivity and a moderate specificity for detecting and excluding invasive carcinomas to a detection threshold of 3-5 mm; nonetheless, appropriate clinical and mammographic follow-up are recommended. MRI is not sensitive for detecting DCIS (ductal carcinoma in situ) and may not detect large invasive neoplasms that show only minimal enhancement such as mucinous carcinoma. If there are suspicious calcifications or clinically worrisome palpable masses, then biopsy should still be considered. Invasive neoplasms can be hidden by co-existent and benign enhancement caused by mastitis, hormone therapy effects, radiation therapy, , and recent biopsy or surgery. False positive examinations can occur in a number of circumstances, including breasts that have recently been subject to invasive procedures and those that contain atypical ductal hyperplasia, hormonally stimulated glandular tissue, fat necrosis, or radial scars. Dictated by: Davion Tejeda M.D. on 01/18/2023 at 16:25 This exam was interpreted at Station ID: [id number]. Electronically Signed By: Davion Tejeda M.D. slc/:01/18/2023 16:32:55 letter sent: Normal Exam ACR BI-RADS Category 1: Negative [id number]
== END ==
PROVIDERS: PCP Physician Assistant Medical; Referring Provider Family Medicine; Visit Provider Family Medicine
DX: R92.8 Other abnormal and inconclusive findings on diagnostic imaging of breast (principal)
CPT/HCPCS: 77049; A9579

== ENCOUNTER → 2024-07-07 06:55 | Outpatient (CLI) | payer OTHER, SELFPAY ==
[2024-07-07 07:28] LABS: Add Manual Diff / Slide Review NO; Basophils Absolute Auto 100 /uL (0-100); Eosinophils Absolute Auto 300 /uL (0-450); Eosinophils Percent Auto 3.9 % (2-4); Hematocrit 38.3 % (36-46); Hemoglobin 13.1 g/dL (12.0-16.0); Lymphocytes Absolute Auto 1900 /uL (1100-4500); Lymphocytes Percent Auto 28.7 % (25-40); Mean Corpuscular HGB Conc 34.3 % (30-36); Mean Corpuscular Volume 90.5 fL (80-100); Monocytes Absolute Auto 300 /uL (0-900); Monocytes Percent Auto 5.3 % (3-14); Neutrophils Absolute Auto 4000 /uL (1500-7000); Neutrophils Percent Auto 61.1 % (50-75); Platelet Count 326 X10^3/uL (150-400); Red Blood Cell Count 4.23 X10^6/uL (4.0-5.2); Red Cell Distribution Width 12.4 % (11.6-14.8); White Blood Cell Count 6.6 X10^3/uL (4.5-11.0)
[2024-07-07 08:12] LABS: Alanine Aminotransferase 22 IU/L (<35); Albumin 4.9 g/dL (3.5-5.0); Albumin Globulin Ratio 1.9 (1.0-2.8); Alkaline Phosphatase 32 U/L (38-126); Aspartate Aminotransferase 32 IU/L (14-36); BUN Creatinine Ratio 22.5 (6-22); Bilirubin Total 0.6 mg/dL (0.2-1.3); Blood Urea Nitrogen 18 mg/dL (7-17); Calcium 9.6 mg/dL (8.4-10.2); Carbon Dioxide 26 mmol/L (22-32); Chloride 104 mmol/L (98-107); Cholesterol 159 mg/dL (140-199); Estimated Glomerular Filt Rate > 60 mL/min (>60); Globulin 2.6 g/dL (1.7-4.1); Glucose 94 mg/dL (70-100); HDL Cholesterol 69 mg/dL (40-60); HEMOLYSIS 25 (0-50); LDL Cholesterol Calculated 81 mg/dL (<100); Potassium 4.4 mmol/L (3.4-5.1); Sodium 138 mmol/L (137-145); Total Protein 7.5 g/dL (6.3-8.2); Triglycerides 47 mg/dL (35-150)
[2024-07-07 08:13] LABS: Iron 121 ug/dL (37-170)
[2024-07-07 08:29] LABS: Free T4, Direct Thyroxine 0.82 ng/dL (0.78-2.19)
[2024-07-07 08:34] LABS: Ferritin 55 ng/mL (6-137)
[2024-07-07 08:43] LABS: Thyroid Stimulating Hormone 2.44 uIU/mL (0.47-4.68)
[2024-07-07 11:58] LABS: Estradiol, Total 85.2 pg/mL
[2024-07-12 22:07] LABS: Anti Mullerian Hormone 2.74 ng/mL (.)
== END ==
PROVIDERS: PCP Family Medicine; Referring Provider Physician Assistant; Visit Provider Physician Assistant
DX: Z13.220 Encounter for screening for lipoid disorders (principal); L65.8 Other specified nonscarring hair loss; Z83.42 Family history of familial hypercholesterolemia; D68.51 Activated protein C resistance; Z31.41 Encounter for fertility testing
CPT/HCPCS: 36415; 80053; 80061; 82397; 82670; 82728; 83540; 84439; 84443; 85025

== ENCOUNTER → 2025-01-01 16:48 | Outpatient (CLI) | payer OTHER, SELFPAY ==
--- NOTE | 2025-01-01 16:50 | DI.MG.S_ITS ---
MM screening mammo BI: 01/01/2025. BI-RADS: 1 CLINICAL: 34-year old female for bilateral screening mammogram. Tyrer-Cuzick lifetime risk of 18.4%. No personal or first-degree family history of breast cancer. Current reported family history of breast cancer: paternal grandmother. PRIOR EXAMS 01/14/2023, 12/21/2022. MAMMOGRAPHY TECHNIQUE: 2D and 3D (tomosynthesis) digital mammographic views obtained, with additional images as needed for full coverage. Current study was also evaluated with a Computer Aided Detection (CAD) system. DENSITY B. There are scattered areas of fibroglandular density. MAMMOGRAPHY FINDINGS Bilateral: No suspicious mass, asymmetry, microcalcification, or other abnormality seen. No significant change from comparison. IMPRESSION: * No evidence of malignancy. RECOMMENDATIONS Bilateral * Annual screening mammography beginning at age 40. OVERALL ASSESSMENT CATEGORY BI-RADS-1: Negative. The [employer] recommends annual screening mammography beginning at age 40 for women with average risk of breast cancer. ELECTRONICALLY SIGNED: Shazia Driscoll M.D. on 01/02/2025 at 04:26:38 PM PT Interpreting Station ID: [id number]
== END ==
PROVIDERS: PCP Family Medicine; Referring Provider Family Medicine; Visit Provider Family Medicine
DX: Z12.31 Encounter for screening mammogram for malignant neoplasm of breast (principal); Z80.3 Family history of malignant neoplasm of breast
CPT/HCPCS: 77063; 77067